=== PATIENT | male | born 1950 | race Caucasian/White ===

== ENCOUNTER 2017-01-25 10:19 | Inpatient (IN) | payer OTHER ==
[2017-01-25 10:43] VITALS: BMI 18.1
--- NOTE | 2017-01-25 12:34 | HP ---
COWS - Scale Resting Pulse: 0= [place] 80 or Below Sweatin=Flushed/Facial Moisture Restless Observation: 3= Extraneous Movement Pupil Size: 2= Moderately Dilated Bone or Joint Aches: 2= Severe Diffuse Aches Runny Nose/ Eye Tearin= Runny Nose/Eyes GI Upset > 30mins: 3= Vomiting/Diarrhea Tremor Observation: 2= Slight Tremor Visible Yawning Observation: 2= >3x During Session Anxiety or Irritability: 2=Irritable/Anxious Goose Flesh Skin: 0=Smooth Skin COWS Score: 20 Admission ROS BHS - HPI Chief Complaint: I NEED HELP TO STOP USING HEROIN Allergies/Adverse Reactions: Allergies Allergy/AdvReac Type Severity Reaction Status Date / Time Penicillins Allergy Verified 01/25/17 13:15 History of Present Illness: THIS 66 YEARS OLD MALE WITH HEROIN DEPENDENCE NEED DETOX,LAST TREATMENT IN 2007 [facility] SEIZURE LAST 2006 WEIGHT LOSS NICOTINE DEPENDENCE DEPRESSION.INSOMNIA HEPATITIS C TREATED LONGEST SOBRIETY 9 YEARS Exam Limitations: No Limitations - Ebola screening Have you traveled outside of the country in the last 21 days: No Have you had contact with anyone from an Ebola affected area: No Have you been sick,other than usual withdrawal symptoms: No Do you have a fever: No - Review of Systems Constitutional: Chills, Diaphoresis, Loss of Appetite, Malaise, Night Sweats, Changes in sleep, Weakness, Unintentional Wgt. Loss EENT: reports: Tearing, Nose Congestion Respiratory: reports: No Symptoms reported Cardiac: reports: Palpitations GI: reports: Diarrhea, Nausea, Vomiting, Abdominal cramping : reports: No Symptoms Reported Musculoskeletal: reports: Back Pain, Joint Pain, Muscle Pain, Joint Stiffness Integumentary: reports: Dryness Neuro: reports: Headache, Tremors Endocrine: reports: No Symptoms Reported Hematology: reports: No Symptoms Reported Psychiatric: reports: Anxious, Depressed (INSOMNIA) Patient History - Patient Medical History Hx Anemia: No Hx Asthma: No Hx Chronic Obstructive Pulmonary Disease (COPD): No Hx Cancer: No Hx Cardiac Disorders: No Hx Congestive Heart Failure: No Hx Hypertension: No Hx Hypercholesterolemia: No Hx Pacemaker: No HX Cerebrovascular Accident: No Hx Seizures: No Hx Dementia: No Hx Diabetes: No Hx Gastrointestinal Disorders: No Hx Liver Disease: No Hx Genitourinary Disorders: No Hx Sexually Transmitted Disorders: No Hx Renal Disease (ESRD): No Hx Thyroid Disease: No Hx Human Immunodeficiency Virus (HIV): (NEVER BEEN TESTED) Hx Hepatitis C: Yes (TREATED IN 2007) Hx Depression: Yes Hx Suicide Attempt: No Hx Bipolar Disorder: No Hx Schizophrenia: No Other Medical History: NO SUICIDAL,NO HOMICIDAL - Patient Surgical History Past Surgical History: No Hx Neurologic Surgery: No Hx Cataract Extraction: No Hx Cardiac Surgery: No Hx Lung Surgery: No Hx Breast Surgery: No Hx Breast Biopsy: No Hx Abdominal Surgery: No Hx Appendectomy: No Hx Cholecystectomy: No Hx Genitourinary Surgery: No Hx Section: No Hx Orthopedic Surgery: Yes ([facility] AT AGE OF 31 YEARS) Anesthesia Reaction: No - PPD History Previous Implant?: Yes Documented Results: Negative w/o proof Implanted On Prior R Admission?: No PPD to be Administered?: Yes - Smoking Cessation Smoking history: Current every day smoker Have you smoked in the past 12 months: Yes Aproximately how many cigarettes per day: 10 Hx Chewing Tobacco Use: No Initiated information on smoking cessation: Yes 'Breaking Loose' booklet given: 01/25/17 - Substance & Tx. History Hx Alcohol Use: No Hx Substance Use: Yes Substance Use Type: Heroin Hx Substance Use Treatment: Yes ([facility] 04/2010) - Substances Abused Heroin Route: Injection Frequency: Daily Amount used: 10 BAGS Age of first use: 12 Date of Last Use: 01/25/17 Family Disease History - Family Disease History Family History: Denies Admission Physical Exam BHS - Vital Signs Vital Signs: Vital Signs - 24 hr 01/25/17 10:41 Temperature 96.8 F L Pulse Rate 74 Respiratory 19 Rate Blood Pressure 123/77 - Physical General Appearance: Yes: Moderate Distress, Tremorous, Irritable, Sweating, Anxious, Other HEENTM: Yes: Normal ENT Inspection, Normocephalic, Normal Voice, OG, Pharynx Normal Respiratory: Yes: Lungs Clear, Normal Breath Sounds, No Respiratory Distress Neck: Yes: Within Normal Limits, Supple, Trachea in good position Breast: Yes: Within Normal Limits Cardiology: Yes: Within Normal Limits, Regular Rhythm, Regular Rate, S1, S2 Abdominal: Yes: Within Normal Limits, Normal Bowel Sounds, Non Tender, Flat, Soft Genitourinary: Yes: Within Normal Limits Back: Yes: Within Normal Limits Musculoskeletal: Yes: full range of Motion, Back pain, Joint Stiffness, Muscle Pain Extremities: Yes: Within Normal Limits, Normal Range of Motion, Tremors, Inflammation Neurological: Yes: Fully Oriented, Alert, Motor Strength 5/5 Integumentary: Yes: Dry - Diagnostic (1) Opioid dependence with withdrawal Current Visit: Yes Status: Acute (2) Weight loss Current Visit: Yes Status: Chronic (3) Insomnia secondary to depression with anxiety Current Visit: Yes Status: Acute (4) Hepatitis C Current Visit: Yes Status: Resolved (5) Nicotine dependence Current Visit: Yes Status: Acute (6) Seizure Current Visit: Yes Status: Acute Cleared for Admission [facility] - Detox or Rehab [facility] Level of Care: Medically Managed Detox Regimen/Protocol: Methadone [facility] Breath Alcohol Content Breath Alcohol Content: 0 Urine Drug Screen - Results Drug Screen Negative: No Urine Drug Screen Results: OPI-Opiates
[2017-01-25] MEDS ORDERED: guaiFENesin/D-METHORPHAN HB 10 ML UNIT-DOSE CUPS PO PRN (13:32)
[2017-01-25] MEDS ORDERED: MAG HYDROX/AL HYDROX/SIMETH 30 ML UNIT-DOSE CUP PO PRN (13:32)
[2017-01-25] MEDS ORDERED: METHADONE HCL 10 MG TABLET (FOR DETOX USE ONLY) PO ONE ×2 (13:32→23:00)
[2017-01-25] MEDS ORDERED: MAGNESIUM HYDROX 2400MG/30ML ORAL SUSPENSION 30 ML CUP PO PRN (13:32)
[2017-01-25] MEDS ORDERED: MENTHOL/PHENOL 1 EACH UD MM PRN (13:32)
[2017-01-25] MEDS ORDERED: IBUPROFEN 400 MG TABLET (FP) PO PRN (13:32)
[2017-01-25] MEDS ORDERED: diphenhydrAMINE HCL 50 MG CAPSULE PO PRN (13:32)
[2017-01-25] MEDS ORDERED: P-EPHED 60MG/TRIPROLIDI 2.5MG TABLET PO PRN (13:32)
[2017-01-25] MEDS ORDERED: hydrOXYzine PAMOATE 25 MG CAPSULE (FP) PO PRN (13:32)
[2017-01-25] MEDS ORDERED: ACETAMINOPHEN 325 MG TABLET (FP) PO PRN (13:32)
[2017-01-25] MEDS ORDERED: MAGNESIUM CITRATE 300 ML BOTTLE PO PRN (13:32)
[2017-01-25] MEDS ORDERED: LOPERAMIDE HCL 2 MG CAPSULE PO PRN (13:32)
[2017-01-25] MEDS: diazePAM 5 MG TABLET PO PRN ×2 (14:55→22:16)
[2017-01-25 21:21] LABS: URINE APPEARANCE SLCLOUDY; URINE BILIRUBIN NEGATIVE (NEGATIVE); URINE BLOOD NEGATIVE (NEGATIVE); URINE COLOR AMBER; URINE GLUCOSE (UA) NEGATIVE (NEGATIVE); URINE KETONE TRACE (NEGATIVE); URINE LEUK ESTERASE NEGATIVE (NEGATIVE); URINE NITRITE NEGATIVE (NEGATIVE); URINE PROTEIN 3+ (NEGATIVE); URINE UROBILINOGEN NEGATIVE mg/dL (0.2-1.0)
[2017-01-25 21:49] LABS: CALCIUM OXALATE CRYSTALS RARE /hpf (NONE SEEN); URINE BACTERIA RARE /hpf (NONE SEEN); URINE MUCUS RARE; URINE RBC 7 /hpf (0-3); URINE WBC 7 /hpf (3-5)
[2017-01-25] MEDS: THIAMINE HCL 100 MG TABLET (FP) PO SCH (22:16)
[2017-01-26] MEDS: diazePAM 5 MG TABLET PO PRN ×3 (05:53→22:18)
[2017-01-26] MEDS ORDERED: METHADONE HCL 10 MG TABLET (FOR DETOX USE ONLY) PO ONE (10:00)
[2017-01-26] MEDS: PRENATAL VITAMINS W/ FOLIC ACID TABLET (FP) PO SCH (10:27)
[2017-01-26 10:33] LABS: ALBUMIN 2.6 g/dl (3.4-5.0); ANION GAP 4 (8-16); CALCIUM 8.5 mg/dL (8.5-10.1); CO2 30 mmol/L (21-32); GLUCOSE,RANDOM 87 mg/dL (74-106)
[2017-01-26 10:36] LABS: ALK PHOS 74 U/L (45-117); BILIRUBIN,TOTAL 0.5 mg/dL (0.2-1.0); CREATININE 1.3 mg/dL (0.7-1.3); SGPT/ALT 27 U/L (12-78); TOT PROT 5.3 g/dl (6.4-8.2)
[2017-01-26 10:40] LABS: SGOT/AST 30 U/L (15-37)
--- NOTE | 2017-01-26 11:16 | CONSULT ---
[facility] Psychiatric Consult - Data Date of interview: 01/26/17 Admission source: [facility] Identifying data: First admission to [facility] for this 66 y/o male seeking detox treatment on for heroin dependence.Patient is ,a father of one,homeless,unemployed and supported on Public Assistance. Substance Abuse History: Discussed with patient in this interview.Mr Gomez confirms this report. Smoking Cessation. Smoking history: Current every day smoker. Have you smoked in the past 12 months: Yes. Aproximately how many cigarettes per day: 10. Hx Chewing Tobacco Use: No. Initiated information on smoking cessation: Yes. 'Breaking Loose' booklet given: 01/25/17. - Substance & Tx. History. Hx Alcohol Use: No. Hx Substance Use: Yes. Substance Use Type : Heroin. Hx Substance Use Treatment: Yes ([facility] 04/2010). - Substances Abused. Heroin. Route: Injection. Frequency: Daily. Amount used: 10 BAGS. Age of first use: 12. Date of Last Use: 01/25/17 Medical History: Past history of hepatitis C (treated in 2007). Psychiatric History: Patient indicates that he is known to [facility] (psychiatric hospitalization versus drug treatment program : unclear).Mr Gomez endorses MDD and PTSD.He informs that he used to be on psychotropic medications (names not recalled)." I used to see a psychiatrist at the 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 Physical/Sexual Abuse/Trauma History: No reported history of sexual abuse.Traumatized by his half-way experiences. Additional Comment: Urine Drug Screen Results: OPI-Opiates.Noted. Mental Status Exam - Mental Status Exam Alert and Oriented to: Time, Place, Person Cognitive Function: Grossly Intact Patient Appearance: Unkempt (frail habitus,thin), Disheveled Mood: Withdrawn, Hopeful Affect: Appropriate, Normal Range Patient Behavior: Fatigued, Cooperative Speech Pattern: Clear, Appropriate Voice Loudness: Normal Thought Process: Goal Oriented Thought Disorder: Not Present Hallucinations: Denies Suicidal Ideation: Denies Homicidal Ideation: Denies Insight/Judgement: Poor Sleep: Well Appetite: Poor, Weight loss Muscle strength/Tone: Normal Gait/Station: Normal Psychiatric Findings - Problem List ([place] 1, 2,3) (1) Opioid dependence with withdrawal Current Visit: Yes Status: Acute (2) Substance induced mood disorder Current Visit: Yes Status: Acute (3) MDD (major depressive disorder) Current Visit: Yes Status: Chronic Comment: History reported by patient.Non-compliant with OPD care. (4) Hepatitis C Current Visit: Yes Status: Resolved (5) Weight loss Current Visit: Yes Status: Chronic (6) Nicotine dependence Current Visit: Yes Status: Acute - Initial Treatment Plan Initial Treatment Plan: Psychoeducation.Detoxification.Pharmacy claims are reviewed : scripts for celexa 20 mg/day + seroquel 50 mg/hs (dated 11/14/16) at [facility] + mirtazapine 15 mg/hs dated 01/01/17).Will restart remeron 15 mg po hs.Side effects/benefits discussed with patient.Mr Gomez is in agreement with this careplan.Observation.
--- NOTE | 2017-01-26 11:27 | EKG ---
Test Reason : Blood Pressure : / mmHG Vent. Rate : 052 BPM Atrial Rate : 052 BPM P-R Int : 168 ms QRS Dur : 094 ms QT Int : 470 ms P-R-T Axes : 064 082 262 degrees QTc Int : 437 ms SINUS BRADYCARDIA WITH OCCASIONAL PREMATURE VENTRICULAR COMPLEXES ABNORMAL ECG NO PREVIOUS ECGS AVAILABLE Confirmed by GERALDO VALLE MD ([id number]) on 01/26/2017 11:27:20 AM Referred By: Confirmed By:GERALDO VALLE MD
--- NOTE | 2017-01-26 16:07 | PN ---
S COWS - Scale Resting Pulse: 0= [place] 80 or Below Sweatin=Flushed/Facial Moisture Restless Observation: 1= Difficult to Sit Still Pupil Size: 0= Normal to Room Light Bone or Joint Aches: 2= Severe Diffuse Aches Runny Nose/ Eye Tearin= Runny Nose/Eyes GI Upset > 30mins: 2= Nausea/Diarrhea Tremor Observation of Outstretched Hands: 2= Slight Tremor Visible Yawning Observation: 1= 1-2x During Session Anxiety or Irritability: 2=Irritable/Anxious Goose Flesh Skin: 0=Smooth Skin COWS Score: 14 S Progress Note (SOAP) Subjective: Anxiety,tremors,sweating,interrupted sleep,restless,body aches. Objective: 01/26/17 16:01 Vital Signs - 8 hr 01/26/17 01/26/17 09:05 13:28 Temperature 97.1 F L 97.0 F L Pulse Rate 72 78 Respiratory 18 16 Rate Blood Pressure 121/55 121/77 Laboratory Tests 01/25/17 01/26/17 01/26/17 15:25 07:50 07:50 WBC Cancelled Corrected WBC (auto) Cancelled RBC Cancelled Hgb Cancelled Hct Cancelled MCV Cancelled MCH Cancelled MCHC Cancelled RDW Cancelled Plt Count Cancelled MPV Cancelled Differential Comment Cancelled Platelet Estimate Cancelled Platelet Comment Cancelled RBC Morphology Cancelled Sodium 141 Potassium 4.3 Chloride 107 Carbon Dioxide 30 Anion Gap 4 L BUN 24 H Creatinine 1.3 Creat Clearance w eGFR 55.23 Random Glucose 87 Calcium 8.5 Total Bilirubin 0.5 AST 30 ALT 27 Alkaline Phosphatase 74 Total Protein 5.3 L Albumin 2.6 L Urine Color Mariann Urine Appearance Slcloudy Urine pH 5.0 Ur Specific [place] >= 1.030 H Urine Protein 3+ H Urine Glucose (UA) Negative Urine Ketones Trace H Urine Blood Negative Urine Nitrite Negative Urine Bilirubin Negative Urine Urobilinogen Negative Urine RBC 7 Urine WBC 7 Ur Epithelial Cells Rare Calcium Oxalate Crystal Rare Urine Bacteria Rare Urine Mucus Rare RPR Titer 01/26/17 07:50 WBC Corrected WBC (auto) RBC Hgb Hct MCV MCH MCHC RDW Plt Count MPV Differential Comment Platelet Estimate Platelet Comment RBC Morphology Sodium Potassium Chloride Carbon Dioxide Anion Gap BUN Creatinine Creat Clearance w eGFR Random Glucose Calcium Total Bilirubin AST ALT Alkaline Phosphatase Total Protein Albumin Urine Color Urine Appearance Urine pH Ur Specific [place] Urine Protein Urine Glucose (UA) Urine Ketones Urine Blood Urine Nitrite Urine Bilirubin Urine Urobilinogen Urine RBC Urine WBC Ur Epithelial Cells Calcium Oxalate Crystal Urine Bacteria Urine Mucus RPR Titer Nonreactive labs noted Assessment: 01/26/17 16:07 Withdrawal sx. Plan: Continue detox
[2017-01-26] MEDS: THIAMINE HCL 100 MG TABLET (FP) PO SCH (22:18)
[2017-01-26] MEDS: MIRTAZAPINE 15 MG TABLET (FP) PO SCH (22:18)
[2017-01-27] MEDS ORDERED: METHADONE HCL 5 MG TABLET (FOR DETOX USE ONLY) PO ONE (10:00)
[2017-01-27] MEDS: PRENATAL VITAMINS W/ FOLIC ACID TABLET (FP) PO SCH (10:03)
--- NOTE | 2017-01-27 12:36 | PN ---
S COWS - Scale Resting Pulse: 1= [place] 81-100 Sweatin= Chills/Flushing Restless Observation: 1= Difficult to Sit Still Pupil Size: 0= Normal to Room Light Bone or Joint Aches: 2= Severe Diffuse Aches Runny Nose/ Eye Tearin= Nasal Congestion GI Upset > 30mins: 1= Stomach Cramp Tremor Observation of Outstretched Hands: 0= None Yawning Observation: 2= >3x During Session Anxiety or Irritability: 2=Irritable/Anxious Goose Flesh Skin: 3=Piloe[place] COWS Score: 14 S Progress Note (SOAP) Subjective: Sweating, H/A, Body Aches. Objective: PT. A & O X 1 (DISORIENTED ABOUT DAY / DATE AND ABOUT CURRENT LOCATION). PT. OBSERVED AMBULATIN [place] UNIT. NO ACUTE DISTRESS. 01/27/17 12:32 Vital Signs Temperature 97.1 F L 01/27/17 09:23 Pulse Rate 83 01/27/17 09:23 Respiratory Rate 16 01/27/17 09:23 Blood Pressure 103/75 01/27/17 09:23 O2 Sat by Pulse Oximetry (%) Laboratory Tests 01/25/17 01/26/17 01/26/17 15:25 07:50 07:50 WBC Cancelled Corrected WBC (auto) Cancelled RBC Cancelled Hgb Cancelled Hct Cancelled MCV Cancelled MCH Cancelled MCHC Cancelled RDW Cancelled Plt Count Cancelled MPV Cancelled Differential Comment Cancelled Platelet Estimate Cancelled Platelet Comment Cancelled RBC Morphology Cancelled Sodium 141 Potassium 4.3 Chloride 107 Carbon Dioxide 30 Anion Gap 4 L BUN 24 H Creatinine 1.3 Creat Clearance w eGFR 55.23 Random Glucose 87 Calcium 8.5 Total Bilirubin 0.5 AST 30 ALT 27 Alkaline Phosphatase 74 Total Protein 5.3 L Albumin 2.6 L Urine Color Mariann Urine Appearance Slcloudy Urine pH 5.0 Ur Specific [place] >= 1.030 H Urine Protein 3+ H Urine Glucose (UA) Negative Urine Ketones Trace H Urine Blood Negative Urine Nitrite Negative Urine Bilirubin Negative Urine Urobilinogen Negative Urine RBC 7 Urine WBC 7 Ur Epithelial Cells Rare Calcium Oxalate Crystal Rare Urine Bacteria Rare Urine Mucus Rare RPR Titer 01/26/17 07:50 WBC Corrected WBC (auto) RBC Hgb Hct MCV MCH MCHC RDW Plt Count MPV Differential Comment Platelet Estimate Platelet Comment RBC Morphology Sodium Potassium Chloride Carbon Dioxide Anion Gap BUN Creatinine Creat Clearance w eGFR Random Glucose Calcium Total Bilirubin AST ALT Alkaline Phosphatase Total Protein Albumin Urine Color Urine Appearance Urine pH Ur Specific [place] Urine Protein Urine Glucose (UA) Urine Ketones Urine Blood Urine Nitrite Urine Bilirubin Urine Urobilinogen Urine RBC Urine WBC Ur Epithelial Cells Calcium Oxalate Crystal Urine Bacteria Urine Mucus RPR Titer Nonreactive LABS NOTED. Assessment: 01/27/17 12:33 WITHDRAWAL SYMPTOMS. Plan: CONTINUE DETOX. CBC (ADMISSION CBC CANCELLED). REPEAT CMP FOR ABNORMAL RENAL LAB VALUES. D/C MAGNESIUM-CONTAINING MEDS. REPEAT UA FOR ADMISSION ABNORMALITIES. INCREASE DAILY PO FLUID INTAKE.
[2017-01-27] MEDS ORDERED: BACITRACIN 15 GM TUBE TOPICAL OINTMENT TP ONE (17:15)
[2017-01-27] MEDS ORDERED: BACITRACIN 0.9 GM PACKET TP ONE (17:15)
[2017-01-27 19:44] LABS: URINE APPEARANCE CLEAR; URINE BILIRUBIN NEGATIVE (NEGATIVE); URINE BLOOD NEGATIVE (NEGATIVE); URINE COLOR LTYELLOW; URINE GLUCOSE (UA) NEGATIVE (NEGATIVE); URINE KETONE NEGATIVE (NEGATIVE); URINE LEUK ESTERASE NEGATIVE (NEGATIVE); URINE NITRITE NEGATIVE (NEGATIVE); URINE PROTEIN NEGATIVE (NEGATIVE); URINE UROBILINOGEN NEGATIVE mg/dL (0.2-1.0)
[2017-01-27] MEDS: BACITRACIN 0.9 GM PACKET TP SCH (22:14)
[2017-01-27] MEDS: THIAMINE HCL 100 MG TABLET (FP) PO SCH (22:14)
[2017-01-27] MEDS: MIRTAZAPINE 15 MG TABLET (FP) PO SCH (22:15)
[2017-01-28] MEDS: diazePAM 5 MG TABLET PO PRN (06:10)
--- NOTE | 2017-01-28 09:52 | EKG ---
Test Reason : Blood Pressure : / mmHG Vent. Rate : 059 BPM Atrial Rate : 059 BPM P-R Int : 160 ms QRS Dur : 096 ms QT Int : 446 ms P-R-T Axes : 069 077 257 degrees QTc Int : 441 ms SINUS BRADYCARDIA LEFT VENTRICULAR HYPERTROPHY WITH REPOLARIZATION ABNORMALITY ABNORMAL ECG WHEN COMPARED WITH ECG OF 25-JAN-2017 14:41, PREMATURE VENTRICULAR COMPLEXES ARE NO LONGER PRESENT Confirmed by LIANNE ELLIS, ALYSSA ([id number]) on 01/28/2017 9:52:22 AM Referred By: Confirmed By:ALYSSA ABDALLA MD
[2017-01-28 09:57] LABS: BASOPHIL 0.7 % (0-2.0); EOSINOPHIL 6.5 % (0-4.5); MCH 31.6 pg (25.7-33.7); MEAN CELL VOLUME 95.8 fl (80-96); MEAN PLT VOLUME 9.5 fl (7.5-11.1); NEUTROPHILS 57.4 % (42.8-82.8); PLATELET COUNT 156 K/MM3 (134-434); RDW 13.9 % (11.9-15.9); WHITE BLOOD COUNT 6.1 K/mm3 (4.0-10.0)
[2017-01-28] MEDS ORDERED: METHADONE HCL 5 MG TABLET (FOR DETOX USE ONLY) PO ONE (10:00)
[2017-01-28] MEDS: BACITRACIN 0.9 GM PACKET TP SCH ×2 (10:19→21:05)
[2017-01-28] MEDS: PRENATAL VITAMINS W/ FOLIC ACID TABLET (FP) PO SCH (10:19)
[2017-01-28 10:59] LABS: ANION GAP 8 (8-16); CALCIUM 8.5 mg/dL (8.5-10.1); CO2 27 mmol/L (21-32); CREATININE 1.2 mg/dL (0.7-1.3); GLUCOSE,RANDOM 102 mg/dL (74-106)
--- NOTE | 2017-01-28 12:25 | PN ---
S Progress Note (SOAP) Subjective: Tremors, Body Aches, Anxious. Objective: PT. A & O X 1 (DISORIENTED ABOUT DAY/DATE ABOUT CURRENT LOCATION). PT. OBSERVED AMBULATING ON UNIT. NO ACUTE DISTRESS. PT. DENIES CHEST PAIN. 01/28/17 12:22 Vital Signs Temperature 96.3 F L 01/28/17 09:22 Pulse Rate 103 H 01/28/17 09:22 Respiratory Rate 18 01/28/17 09:22 Blood Pressure 128/86 01/28/17 09:22 O2 Sat by Pulse Oximetry (%) Laboratory Tests 01/25/17 01/26/17 01/26/17 15:25 07:50 07:50 WBC Cancelled Corrected WBC (auto) Cancelled RBC Cancelled Hgb Cancelled Hct Cancelled MCV Cancelled MCH Cancelled MCHC Cancelled RDW Cancelled Plt Count Cancelled MPV Cancelled Neutrophils % Lymphocytes % Monocytes % Eosinophils % Basophils % Differential Comment Cancelled Platelet Estimate Cancelled Platelet Comment Cancelled RBC Morphology Cancelled Sodium 141 Potassium 4.3 Chloride 107 Carbon Dioxide 30 Anion Gap 4 L BUN 24 H Creatinine 1.3 Creat Clearance w eGFR 55.23 Random Glucose 87 Calcium 8.5 Total Bilirubin 0.5 AST 30 ALT 27 Alkaline Phosphatase 74 Total Protein 5.3 L Albumin 2.6 L Urine Color [place] Urine Appearance Slcloudy Urine pH 5.0 Ur Specific [place] >= 1.030 H Urine Protein 3+ H Urine Glucose (UA) Negative Urine Ketones Trace H Urine Blood Negative Urine Nitrite Negative Urine Bilirubin Negative Urine Urobilinogen Negative Urine RBC 7 Urine WBC 7 Ur Epithelial Cells Rare Calcium Oxalate Crystal Rare Urine Bacteria Rare Urine Mucus Rare RPR Titer 01/26/17 01/27/17 01/28/17 07:50 19:29 07:00 WBC 6.1 Corrected WBC (auto) RBC 3.88 L Hgb 12.3 Hct 37.2 MCV 95.8 MCH 31.6 MCHC 33.0 RDW 13.9 Plt Count 156 MPV 9.5 Neutrophils % 57.4 Lymphocytes % 24.4 Monocytes % 11.0 H Eosinophils % 6.5 H Basophils % 0.7 Differential Comment Platelet Estimate Platelet Comment RBC Morphology Sodium Potassium Chloride Carbon Dioxide Anion Gap BUN Creatinine Creat Clearance w eGFR Random Glucose Calcium Total Bilirubin AST ALT Alkaline Phosphatase Total Protein Albumin Urine Color Ltyellow Urine Appearance Clear Urine pH 5.0 Ur Specific [place] <= 1.005 Urine Protein Negative Urine Glucose (UA) Negative Urine Ketones Negative Urine Blood Negative Urine Nitrite Negative Urine Bilirubin Negative Urine Urobilinogen Negative Urine RBC Urine WBC Ur Epithelial Cells Calcium Oxalate Crystal Urine Bacteria Urine Mucus RPR Titer Nonreactive 01/28/17 07:00 WBC Corrected WBC (auto) RBC Hgb Hct MCV MCH MCHC RDW Plt Count MPV Neutrophils % Lymphocytes % Monocytes % Eosinophils % Basophils % Differential Comment Platelet Estimate Platelet Comment RBC Morphology Sodium 139 Potassium 3.9 Chloride 104 Carbon Dioxide 27 Anion Gap 8 BUN 24 H Creatinine 1.2 Creat Clearance w eGFR Random Glucose 102 Calcium 8.5 Total Bilirubin AST ALT Alkaline Phosphatase Total Protein Albumin Urine Color Urine Appearance Urine pH Ur Specific [place] Urine Protein Urine Glucose (UA) Urine Ketones Urine Blood Urine Nitrite Urine Bilirubin Urine Urobilinogen Urine RBC Urine WBC Ur Epithelial Cells Calcium Oxalate Crystal Urine Bacteria Urine Mucus RPR Titer LABS NOTED. Assessment: 01/28/17 12:24 WITHDRAWAL SYMPTOMS. Plan: CONTINUE DETOX. AMMONIA LEVEL, PSYCH CONSULTATION ORDERED FOR CONFUSION / DISORIENTATION.
--- NOTE | 2017-01-28 14:34 | PN ---
BHS Progress Note Note: Patient's Ammonia Level: 35.28. Lactulose, 20 GM PO TID ordered. Acetaminophen D /C'd.
[2017-01-28] MEDS: LACTULOSE 20 GM/30 ML UDC (FOR ORAL USE ONLY) PO SCH ×2 (14:40→21:05)
--- NOTE | 2017-01-28 14:54 | PN ---
Psychiatric Progress Note Vital Signs: Vital Signs Period Temp Pulse Resp BP Sys/Ferrer Pulse Ox Last 24 Hr 96.3 F-99.4 F 66-103 16-18 122-152/63-86 Date of Session: 01/28/17 Chief Complaint:: " I am at [facility]." Patient is cognitively impaired. HPI: Day 3 of detox treatment for heroin dependence.Psychiatric re-evaluation is sought to address sudden alteration of mental status.Mr Gomez is observed behaving erratically as evidenced by disrobing,throwing his pajamas in the garbage can,wandering on the unit and rambling. ROS: Patient is disoriented to time (unaware of day of week/believes that this is end of February 2017) and place (believes that he is still at [facility]).Wanders around.Incoherent and irrelevant speech.Ambulatory.Steady but slow gait.Cognitively impaired. Current Medications: Active Medications Generic Name Dose Route Start Last Admin Trade Name Freq PRN Reason Stop Dose Admin Bacitracin 0.9 gm 01/27/17 22:00 01/28/17 10:19 Bacitracin - TP 0.9 gm BID MARTIN Administration Diphenhydramine HCl 50 mg 01/25/17 13:32 01/27/17 22:15 Benadryl - PO 50 mg HSMR1 PRN Administration INSOMNIA Eucalyptus/Menthol/Phenol/Sorbitol 1 each 01/25/17 13:32 Cepastat Lozenge - MM Q4H PRN SORE THROAT Guaifenesin 10 ml 01/25/17 13:32 Robitussin Dm - PO Q6H PRN COUGH Hydroxyzine Pamoate 25 mg 01/25/17 13:32 Vistaril - PO Q4H PRN AGITATION Ibuprofen 400 mg 01/25/17 13:32 Motrin - PO Q6H PRN SEVERE PAIN Lactulose 20 gm 01/28/17 14:30 01/28/17 14:40 Cephulac (Oral Use) PO 20 gm TID MARTIN Administration Loperamide HCl 4 mg 01/25/17 13:32 Imodium - PO Q6H PRN DIARRHEA Methadone HCl 10 mg 01/29/17 10:00 Dolophine - PO 01/29/17 10:01 ONCE ONE Methadone HCl 5 mg 01/30/17 06:00 Dolophine - PO 01/30/17 06:01 ONCE@0600 ONE Multivit/Folic Acid/Iron 1 tab 01/26/17 10:00 01/28/17 10:19 Vitamins (Sjr) - PO 1 tab DAILY MARTIN Administration Pseudoephedrine/Triprolidine 1 combo 01/25/17 13:32 Actifed - PO TID PRN NASAL CONGESTION Thiamine HCl 100 mg 01/25/17 22:00 01/27/17 22:14 Vitamin B1 - PO 100 mg HS MARTIN Administration Medication(s) Change(s): Remeron is discontinued.Recommend a re-adjustment of detox protocol (methadone dosage). Current Side Effect: Yes (medications are suspected to be the cause of altered mental state.) Lab tests ordered: Yes (mild elevation of ammonia level.) Lab tests reviewed: Yes Provider note:: Patient is examined.Case discussed with [employer] Ivan Ro.Chart reviewed.Patient is placed on Constant Observation for safety. Total face to face time:: 45 Mental Status Exam - Mental Status Exam Alert and Oriented to: Person Cognitive Function: Impaired Patient Appearance: Well Groomed, Bizarre Mood: Euthymic Affect: Blunted Patient Behavior: Wandering (odd demeanor,purposeless actions - rearranging objects + grabbing items on interviewer's desk - and moving around in an aimless fashion) Speech Pattern: Inappropriate, Rambling (at times), Perseverating (incoherent, irrelevant,disorganized) Voice Loudness: Normal Thought Process: Disorganized, Disoriented Thought Disorder: Bizarre Hallucinations: Denies Suicidal Ideation: Denies Homicidal Ideation: Denies Insight/Judgement: Poor, Impaired Sleep: Poorly Appetite: Fair Gait/Station: Other (slow gait) Psychiatric Treatment Plan - Problem List (1) Altered mental status Current Visit: Yes Qualifiers: Altered mental status type: delirium Qualified Code(s): R41.0 - Disorientation, unspecified (2) Opioid dependence with withdrawal Current Visit: Yes (3) Substance induced mood disorder Current Visit: Yes (4) MDD (major depressive disorder) Current Visit: Yes Comment: History reported by patient.Non-compliant with OPD care. (5) Hepatitis C Current Visit: Yes (6) Weight loss Current Visit: Yes (7) Nicotine dependence Current Visit: Yes
[2017-01-28] MEDS: THIAMINE HCL 100 MG TABLET (FP) PO SCH (21:05)
[2017-01-29] MEDS: LACTULOSE 20 GM/30 ML UDC (FOR ORAL USE ONLY) PO SCH ×3 (05:33→22:58)
[2017-01-29] MEDS ORDERED: METHADONE HCL 10 MG TABLET (FOR DETOX USE ONLY) PO ONE (10:00)
[2017-01-29] MEDS: BACITRACIN 0.9 GM PACKET TP SCH ×2 (10:12→22:58)
[2017-01-29] MEDS: PRENATAL VITAMINS W/ FOLIC ACID TABLET (FP) PO SCH (10:12)
[2017-01-29] MEDS: LOSARTAN POTASSIUM 50 MG TABLET (FP) PO SCH ×2 (10:13→22:58)
[2017-01-29] MEDS: CARVEDILOL 25 MG TABLET (FP) PO SCH ×2 (10:13→22:58)
--- NOTE | 2017-01-29 11:20 | PN ---
S Progress Note (SOAP) Subjective: SAW PT SITTING ON HIS BED, NO RESTLESSNESS OR AGITATIONS. ALERT ORIENTED TO SELF AND PLACE BUT NOT DAY. COHERENT IN CONVERSATION ASKING ABOUT HIS AFTERCARE. TO BE RE-EVALUATED BY PSYCH TODAY. Objective: 01/29/17 12:14 Vital Signs Temperature 99.3 F 01/29/17 09:16 Pulse Rate 79 01/29/17 09:16 Respiratory Rate 16 01/29/17 09:16 Blood Pressure 122/70 01/29/17 09:16 O2 Sat by Pulse Oximetry (%) Laboratory Last Values WBC 6.1 K/mm3 (4.0-10.0) 01/28/17 07:00 Corrected WBC (auto) Cancelled 01/26/17 07:50 RBC 3.88 M/mm3 (4.00-5.60) L 01/28/17 07:00 Hgb 12.3 GM/dL (11.7-16.9) 01/28/17 07:00 Hct 37.2 % (35.4-49) 01/28/17 07:00 MCV 95.8 fl (80-96) 01/28/17 07:00 MCH 31.6 pg (25.7-33.7) 01/28/17 07:00 MCHC 33.0 g/dl (32.0-35.9) 01/28/17 07:00 RDW 13.9 % (11.9-15.9) 01/28/17 07:00 Plt Count 156 K/MM3 (134-434) 01/28/17 07:00 MPV 9.5 fl (7.5-11.1) 01/28/17 07:00 Neutrophils % 57.4 % (42.8-82.8) 01/28/17 07:00 Lymphocytes % 24.4 % (8-40) 01/28/17 07:00 Monocytes % 11.0 % (3.8-10.2) H 01/28/17 07:00 Eosinophils % 6.5 % (0-4.5) H 01/28/17 07:00 Basophils % 0.7 % (0-2.0) 01/28/17 07:00 Differential Comment Cancelled 01/26/17 07:50 Platelet Estimate Cancelled 01/26/17 07:50 Platelet Comment Cancelled 01/26/17 07:50 Platelet Comment Cancelled 01/26/17 07:50 RBC Morphology Cancelled 01/26/17 07:50 Sodium 139 mmol/L (136-145) 01/28/17 07:00 Potassium 3.9 mmol/L (3.5-5.1) 01/28/17 07:00 Chloride 104 mmol/L (98-107) 01/28/17 07:00 Carbon Dioxide 27 mmol/L (21-32) 01/28/17 07:00 Anion Gap 8 (8-16) 01/28/17 07:00 BUN 24 mg/dL (7-18) H 01/28/17 07:00 Creatinine 1.2 mg/dL (0.7-1.3) 01/28/17 07:00 Creat Clearance w eGFR 55.23 (>60) 01/26/17 07:50 Random Glucose 102 mg/dL (74-106) 01/28/17 07:00 Calcium 8.5 mg/dL (8.5-10.1) 01/28/17 07:00 Total Bilirubin 0.5 mg/dL (0.2-1.0) 01/26/17 07:50 AST 30 U/L (15-37) 01/26/17 07:50 ALT 27 U/L (12-78) 01/26/17 07:50 Alkaline Phosphatase 74 U/L (45-117) 01/26/17 07:50 Ammonia 35.28 umol/L (11-32) H 01/28/17 12:20 Total Protein 5.3 g/dl (6.4-8.2) L 01/26/17 07:50 Albumin 2.6 g/dl (3.4-5.0) L 01/26/17 07:50 Urine Color Ltyellow 01/27/17 19:29 Urine Appearance Clear 01/27/17 19:29 Urine pH 5.0 (5.0-8.0) 01/27/17 19:29 Ur Specific [place] <= 1.005 (1.005-1.025) 01/27/17 19:29 Urine Protein Negative (NEGATIVE) 01/27/17 19:29 Urine Glucose (UA) Negative (NEGATIVE) 01/27/17 19:29 Urine Ketones Negative (NEGATIVE) 01/27/17 19:29 Urine Blood Negative (NEGATIVE) 01/27/17 19:29 Urine Nitrite Negative (NEGATIVE) 01/27/17 19:29 Urine Bilirubin Negative (NEGATIVE) 01/27/17 19:29 Urine Urobilinogen Negative mg/dL (0.2-1.0) 01/27/17 19:29 Urine RBC 7 /hpf (0-3) 01/25/17 15:25 Urine WBC 7 /hpf (3-5) 01/25/17 15:25 Ur Epithelial Cells Rare /hpf (FEW) 01/25/17 15:25 Calcium Oxalate Crystal Rare /hpf (NONE SEEN) 01/25/17 15:25 Urine Bacteria Rare /hpf (NONE SEEN) 01/25/17 15:25 Urine Mucus Rare 01/25/17 15:25 RPR Titer Nonreactive (NONREACTIVE) 01/26/17 07:50 Assessment: 01/29/17 12:16 WITHDRAWAL SX Plan: CONTINUE DETOX PT RE-EVALUATED BY PSYCH MD TREVINO D/C'D 1:1 PROTOCOL.
--- NOTE | 2017-01-29 12:13 | PN ---
Psychiatric Progress Note Vital Signs: Vital Signs Period Temp Pulse Resp BP Sys/Ferrer Pulse Ox Last 24 Hr 96.3 F-99.3 F 79-104 16-18 122-160/70-94 Date of Session: 01/29/17 Chief Complaint:: reevaluation for 1:1 observation due to altered mental status HPI: Patient has been evaluated at bedside, chart reviewed, patient is oriented to place, person and time, making good eye contact, redirectional and asking for food, ensure was ordered, patient reports low energy and motivation to take ensure.. Current Ammonia level is:35.2. Patient asking to restart his psychiatric medications as well Current Medications: Active Medications Generic Name Dose Route Start Last Admin Trade Name Freq PRN Reason Stop Dose Admin Bacitracin 0.9 gm 01/27/17 22:00 01/29/17 10:12 Bacitracin - TP 0.9 gm BID MARTIN Administration Carvedilol 25 mg 01/29/17 10:00 01/29/17 10:13 Coreg - PO 25 mg BID MARTIN Administration Diphenhydramine HCl 50 mg 01/25/17 13:32 01/27/17 22:15 Benadryl - PO 50 mg HSMR1 PRN Administration INSOMNIA Eucalyptus/Menthol/Phenol/Sorbitol 1 each 01/25/17 13:32 Cepastat Lozenge - MM Q4H PRN SORE THROAT Guaifenesin 10 ml 01/25/17 13:32 Robitussin Dm - PO Q6H PRN COUGH Hydroxyzine Pamoate 25 mg 01/25/17 13:32 Vistaril - PO Q4H PRN AGITATION Ibuprofen 400 mg 01/25/17 13:32 01/29/17 04:08 Motrin - PO 400 mg Q6H PRN Administration SEVERE PAIN Lactulose 20 gm 01/28/17 14:30 01/29/17 05:33 Cephulac (Oral Use) PO 20 gm TID MARTIN Administration Loperamide HCl 4 mg 01/25/17 13:32 Imodium - PO Q6H PRN DIARRHEA Losartan Potassium 50 mg 01/29/17 10:00 01/29/17 10:13 Cozaar - PO 50 mg BID MARTIN Administration Methadone HCl 5 mg 01/30/17 06:00 Dolophine - PO 01/30/17 06:01 ONCE@0600 ONE Multivit/Folic Acid/Iron 1 tab 01/26/17 10:00 01/29/17 10:12 Vitamins (Sjr) - PO 1 tab DAILY MARTIN Administration Pseudoephedrine/Triprolidine 1 combo 01/25/17 13:32 Actifed - PO TID PRN NASAL CONGESTION Thiamine HCl 100 mg 01/25/17 22:00 01/28/17 21:05 Vitamin B1 - PO 100 mg HS MARTIN Administration Medication(s) Change(s): Discontinue 1:1 observation. Start: Celexa 20mg poqd. Remeron 15mg po qhs. Seroquel 50mg po qhs Mental Status Exam - Mental Status Exam Alert and Oriented to: Time, Place, Person Cognitive Function: Fair Patient Appearance: Unkempt Mood: Anxious Affect: Mood Congruent Patient Behavior: Cooperative Speech Pattern: Appropriate Voice Loudness: Mildly Soft/Quiet Thought Process: Circumstantial, Goal Oriented Thought Disorder: Being Controlled Hallucinations: Denies Suicidal Ideation: Denies Homicidal Ideation: Denies Insight/Judgement: Fair Sleep: Difficulty falling asleep Appetite: Weight loss Muscle strength/Tone: Mild Hypotonicity Gait/Station: Shuffling Additional Comments: Start Celexa 20mg poqd. Remeron 15mg po qhs. Seroquel 50mg po qhs Psychiatric Treatment Plan - Problem List (1) Nicotine dependence Current Visit: Yes (2) Opioid dependence with withdrawal Current Visit: Yes (3) Substance induced mood disorder Current Visit: Yes (4) MDD (major depressive disorder) Current Visit: Yes Comment: History reported by patient.Non-compliant with OPD care. (5) Weight loss Current Visit: Yes Initial treatment plan: Start Celexa 20mg poqd. Remeron 15mg po qhs. Seroquel 50mg po qhs
[2017-01-29] MEDS ORDERED: QUEtiapine FUMARATE 50 MG TABLET PO SCH (22:00)
[2017-01-29] MEDS ORDERED: MIRTAZAPINE 15 MG TABLET (FP) PO SCH (22:00)
[2017-01-29] MEDS: THIAMINE HCL 100 MG TABLET (FP) PO SCH (22:57)
[2017-01-30] MEDS ORDERED: METHADONE HCL 5 MG TABLET (FOR DETOX USE ONLY) PO ONE (06:00)
[2017-01-30] MEDS: LACTULOSE 20 GM/30 ML UDC (FOR ORAL USE ONLY) PO SCH (07:16)
[2017-01-30 09:30] VITALS: BP 78/54; PULSE 66; TEMP 97.6
[2017-01-30] MEDS ORDERED: CITALOPRAM HYDROBROMIDE 10 MG TABLET (FP) PO SCH (10:00)
[2017-01-30] MEDS: BACITRACIN 0.9 GM PACKET TP SCH (10:15)
[2017-01-30] MEDS: PRENATAL VITAMINS W/ FOLIC ACID TABLET (FP) PO SCH (10:15)
[2017-01-30] MEDS: CARVEDILOL 25 MG TABLET (FP) PO SCH (10:16)
[2017-01-30] MEDS: LOSARTAN POTASSIUM 50 MG TABLET (FP) PO SCH (10:16)
--- NOTE | 2017-01-30 11:55 | DS ---
[facility] Detox Discharge Summary Admission Date: 01/25/17 Discharge Date: 01/30/17 - History Present History: Opioid Dependence Additional Comments: PT. OFFERED OPPORTUNITY TO GO TO REHAB, BUT ELECTING TO GO HOME AT THIS TIME INSTEAD. PATIENT ADVISED TO FOLLOW-UP WITH CERTIFIED NUTRITIONIST DR. BLACK ([place], [place]) FOR GENERAL MEDICAL ASSESSMENT AND FOR FOLLOW-UP FOR ELEVATED AMMONIA LEVEL WHILE ADMITTED FOR DETOX. COPIES OF ALL LABS DRAWN FOR PATIENT GIVEN TO PATIENT AT TIME OF DISCHARGE FROM DETOX. PATIENT ALSO NOTED THAT HE WILL RETURN TO OUTPATIENT MEETINGS IN [facility] ([place], [place]) FOR AFTERCARE. PATIENT WAS DISCHARGED FROM DETOX UNIT IN STABLE MEDICAL CONDITION. Pertinent Past History: Hep C (Treated), Depression, Seizures, Nicotine Dependence. - Physical Exam Results Vital Signs: Vital Signs Temperature 97.6 F 01/30/17 09:29 Pulse Rate 66 01/30/17 09:29 Respiratory Rate 18 01/30/17 09:29 Blood Pressure 78/54 01/30/17 09:29 O2 Sat by Pulse Oximetry (%) Pertinent Admission Physical Exam Findings: WITHDRAWAL SYMPTOMS. Laboratory Tests 01/25/17 01/26/17 01/26/17 15:25 07:50 07:50 WBC Cancelled Corrected WBC (auto) Cancelled RBC Cancelled Hgb Cancelled Hct Cancelled MCV Cancelled MCH Cancelled MCHC Cancelled RDW Cancelled Plt Count Cancelled MPV Cancelled Neutrophils % Lymphocytes % Monocytes % Eosinophils % Basophils % Differential Comment Cancelled Platelet Estimate Cancelled Platelet Comment Cancelled RBC Morphology Cancelled Sodium 141 Potassium 4.3 Chloride 107 Carbon Dioxide 30 Anion Gap 4 L BUN 24 H Creatinine 1.3 Creat Clearance w eGFR 55.23 Random Glucose 87 Calcium 8.5 Total Bilirubin 0.5 AST 30 ALT 27 Alkaline Phosphatase 74 Ammonia Total Protein 5.3 L Albumin 2.6 L Urine Color [place] Urine Appearance Slcloudy Urine pH 5.0 Ur Specific [place] >= 1.030 H Urine Protein 3+ H Urine Glucose (UA) Negative Urine Ketones Trace H Urine Blood Negative Urine Nitrite Negative Urine Bilirubin Negative Urine Urobilinogen Negative Urine RBC 7 Urine WBC 7 Ur Epithelial Cells Rare Calcium Oxalate Crystal Rare Urine Bacteria Rare Urine Mucus Rare RPR Titer 01/26/17 01/27/17 01/28/17 07:50 19:29 07:00 WBC 6.1 Corrected WBC (auto) RBC 3.88 L Hgb 12.3 Hct 37.2 MCV 95.8 MCH 31.6 MCHC 33.0 RDW 13.9 Plt Count 156 MPV 9.5 Neutrophils % 57.4 Lymphocytes % 24.4 Monocytes % 11.0 H Eosinophils % 6.5 H Basophils % 0.7 Differential Comment Platelet Estimate Platelet Comment RBC Morphology Sodium Potassium Chloride Carbon Dioxide Anion Gap BUN Creatinine Creat Clearance w eGFR Random Glucose Calcium Total Bilirubin AST ALT Alkaline Phosphatase Ammonia Total Protein Albumin Urine Color Ltyellow Urine Appearance Clear Urine pH 5.0 Ur Specific [place] <= 1.005 Urine Protein Negative Urine Glucose (UA) Negative Urine Ketones Negative Urine Blood Negative Urine Nitrite Negative Urine Bilirubin Negative Urine Urobilinogen Negative Urine RBC Urine WBC Ur Epithelial Cells Calcium Oxalate Crystal Urine Bacteria Urine Mucus RPR Titer Nonreactive 01/28/17 01/28/17 01/30/17 07:00 12:20 07:00 WBC Corrected WBC (auto) RBC Hgb Hct MCV MCH MCHC RDW Plt Count MPV Neutrophils % Lymphocytes % Monocytes % Eosinophils % Basophils % Differential Comment Platelet Estimate Platelet Comment RBC Morphology Sodium 139 Potassium 3.9 Chloride 104 Carbon Dioxide 27 Anion Gap 8 BUN 24 H Creatinine 1.2 Creat Clearance w eGFR Random Glucose 102 Calcium 8.5 Total Bilirubin AST ALT Alkaline Phosphatase Ammonia 35.28 H 21 Total Protein Albumin Urine Color Urine Appearance Urine pH Ur Specific [place] Urine Protein Urine Glucose (UA) Urine Ketones Urine Blood Urine Nitrite Urine Bilirubin Urine Urobilinogen Urine RBC Urine WBC Ur Epithelial Cells Calcium Oxalate Crystal Urine Bacteria Urine Mucus RPR Titer LABS NOTED. - Treatment Hospital Course: Detox Protocol Followed, Detoxed Safely, Responded well, Discharged Condition Good Patient has Accepted a Rehab Referral to: NO. PT WILL RETURN TO AA MEETINGS AT [facility] ([place] - Medication Discharge Medications: Ambulatory Orders Carvedilol [Coreg -] 25 mg PO BID 01/25/17 Citalopram Hydrobromide [Citalopram HBr] 20 mg PO HS 01/25/17 Quetiapine Fumarate [Seroquel -] 50 mg PO HS 01/25/17 Mirtazapine [Remeron -] 15 mg PO HS #30 tablet 01/26/17 Citalopram Hydrobromide [Celexa -] 10 mg PO DAILY #30 tablet 01/29/17 Losartan Potassium 50 mg PO BID 01/29/17 Mirtazapine [Remeron -] 15 mg PO HS #30 tablet 01/29/17 Quetiapine Fumarate [Seroquel -] 50 mg PO HS #30 tablet 01/29/17 - Diagnosis (1) Insomnia secondary to depression with anxiety Status: Acute (2) Nicotine dependence Status: Chronic Qualifiers: Nicotine product type: cigarettes Substance use status: uncomplicated Qualified Code(s): F17.210 - Nicotine dependence, cigarettes, uncomplicated (3) Opioid dependence with withdrawal Status: Acute (4) Seizure Status: Acute (5) Substance induced mood disorder Status: Acute (6) MDD (major depressive disorder) Status: Chronic Qualifiers: Major depression recurrence: recurrent Active/Remission status: remission status unspecified Qualified Code(s): F33.9 - Major depressive disorder, recurrent, unspecified (7) Weight loss Status: Chronic (8) Hepatitis C Status: Resolved Qualifiers: Viral hepatitis chronicity: chronic Hepatic coma status: without hepatic coma Qualified Code(s): B18.2 - Chronic viral hepatitis C (9) Altered mental status Status: Acute Qualifiers: Altered mental status type: delirium Qualified Code(s): R41.0 - Disorientation, unspecified - AMA Did Patient Leave Against Medical Advice: No
== END 2017-01-30 10:44 | disposition home or self-care (01) | DRG 897 ==
LOC: YASAS 10:19 → Y3N 11:27
PROVIDERS: ADMIT Internal Medicine; ATTEND Internal Medicine
PROC: HZ2ZZZZ Detoxification Services for Substance Abuse Treatment (ICD-10-PCS; principal; 2017-01-25)
DX: F11.23 Opioid dependence with withdrawal (principal); F33.9 Major depressive disorder, recurrent, unspecified; Z68.1 Body mass index [BMI] 19.9 or less, adult; F17.210 Nicotine dependence, cigarettes, uncomplicated; F19.24 Other psychoactive substance dependence with psychoactive substance-induced mood disorder; F41.8 Other specified anxiety disorders; R56.9 Unspecified convulsions; R41.0 Disorientation, unspecified; G47.00 Insomnia, unspecified; R63.4 Abnormal weight loss; Z59.0 Homelessness
CPT/HCPCS: 36415; 80048; 80053; 81003; 81015; 82140; 85025; 86593; 93005; 93010

== ENCOUNTER 2017-02-23 08:23 | Inpatient (IN) | payer OTHER ==
[2017-02-23 08:52] VITALS: BMI 16.2
--- NOTE | 2017-02-23 13:11 | HP ---
[facility] Rehab Assess/Revision - Admission History Admitted to Rehab from: [facility] [place] - Vital signs Vital Signs: Vital Signs Period Temp Pulse Resp BP Sys/Ferrer Pulse Ox Last 24 Hr 96.8 F 84 18 144/90 - Findings Detox History & Physical reviewed: Yes Concur with findings: Yes
[2017-02-23] MEDS ORDERED: MAGNESIUM HYDROX 2400MG/30ML ORAL SUSPENSION 30 ML CUP PO PRN (13:14)
[2017-02-23] MEDS ORDERED: P-EPHED 60MG/TRIPROLIDI 2.5MG TABLET PO PRN (13:14)
[2017-02-23] MEDS ORDERED: MENTHOL/PHENOL 1 EACH UD MM PRN (13:14)
[2017-02-23] MEDS ORDERED: MAGNESIUM CITRATE 300 ML BOTTLE PO PRN (13:14)
[2017-02-23] MEDS ORDERED: LOPERAMIDE HCL 2 MG CAPSULE PO PRN (13:14)
[2017-02-23] MEDS ORDERED: MAG HYDROX/AL HYDROX/SIMETH 30 ML UNIT-DOSE CUP PO PRN (13:14)
[2017-02-23] MEDS ORDERED: IBUPROFEN 400 MG TABLET (FP) PO PRN (13:14)
[2017-02-23] MEDS ORDERED: NICOTINE POLACRILEX 4 MG GUM BUC PRN (13:14)
[2017-02-23] MEDS ORDERED: hydrOXYzine PAMOATE 50 MG CAPSULE (FP) PO PRN (13:14)
[2017-02-23] MEDS ORDERED: diphenhydrAMINE HCL 50 MG CAPSULE PO PRN (13:14)
[2017-02-23] MEDS ORDERED: guaiFENesin/D-METHORPHAN HB 10 ML UNIT-DOSE CUPS PO PRN (13:14)
--- NOTE | 2017-02-23 13:14 | HP ---
CYNTHIA ELLIS Rehab Assess/Revision - Vital signs Vital Signs: Vital Signs Period Temp Pulse Resp BP Sys/Ferrer Pulse Ox Last 24 Hr 96.8 F 84 18 144/90 Inpatient Rehab Admission - Initial Determination Are CD services needed?: Yes Free of communicable disease: Yes Not in need of hospitalization: Yes - Rehab Admission Criteria Comorbidities: Yes Patient is meeting Inpatient Rehab admission criteria:: Yes
[2017-02-23] MEDS ORDERED: FUROSEMIDE 20 MG TABLET (FP) PO SCH (14:17)
--- NOTE | 2017-02-23 15:48 | HP ---
Psychiatrist Admission - Data Date of interview: 02/23/17 Admission source: [facility] Identifying data: This is the first inpatient rehabilitation admission for ginosi 66 year old male, father of one,unemployed and homeless and supported on PA. Medical History: COPD, CHF, HTN and Hep C. Smokes cigarettes 10 a day. Psychiatric History: Patient reports was disgnosed as PTSD(related to his 30 years penitentiary time) and Mood disorder, reports he used to be on Remeron, Celexa and Seroquel "as needed", treated in rehab/detox unit. States he does not need medications only Seroquel 25 mg po hs PRN. Seen by while at restarted Remeron 15 mg po hs, patient reports after his discharge from was admitted in [facility] for treatment of COPD and Congestive heart failure , reports he did not continued medications. Physical/Sexual Abuse/Trauma History: Denies history of sexual, physical and verbal abuse. Vital Signs: Vital Signs - 24 hr 02/23/17 08:50 Temperature 96.8 F L Pulse Rate 84 Respiratory 18 Rate Blood Pressure 144/90 Allergies/Adverse Reactions: Allergies Allergy/AdvReac Type Severity Reaction Status Date / Time Penicillins Allergy Swelling Verified 02/23/17 11:06 Date of last physical exam: 02/23/17 Concur with the findings of this exam: Yes - Substance Abuse/Tx History Hx Alcohol Use: No Hx Substance Use: Yes (started at age of 10) Substance Use Type: Heroin (daily 10 bags IV) Hx Substance Use Treatment: Yes ([facility] Mental Status Exam - Mental Status Exam Alert and Oriented to: Time, Place, Person Cognitive Function: Good Patient Appearance: Well Groomed Mood: Anxious Affect: Mood Congruent Patient Behavior: Appropriate, Cooperative Speech Pattern: Clear, Appropriate Voice Loudness: Normal Thought Process: Intact, Goal Oriented Thought Disorder: Not Present Hallucinations: Denies Suicidal Ideation: Denies Homicidal Ideation: Denies Insight/Judgement: Fair Sleep: Well Appetite: Good Muscle strength/Tone: Normal Gait/Station: Normal Psychiatric Findings - Problem List ([place] 1, 2,3) (1) Nicotine dependence Current Visit: Yes Status: Chronic Qualifiers: Nicotine product type: cigarettes Substance use status: uncomplicated Qualified Code(s): F17.210 - Nicotine dependence, cigarettes, uncomplicated; F17.210 - Nicotine dependence, cigarettes, uncomplicated (2) Substance induced mood disorder Current Visit: No Status: Acute (3) Post traumatic stress disorder (PTSD) Current Visit: Yes Status: Acute (4) Opioid dependence Current Visit: Yes Status: Acute - Initial Treatment Plan Initial Treatment Plan: Will add Seroquel 25 mg po hs PRN, continue to monitor progress.
[2017-02-23] MEDS ORDERED: QUEtiapine FUMARATE 25 MG TABLET (FP) PO PRN (15:49)
[2017-02-23 17:25] LABS: URINE APPEARANCE SLCLOUDY; URINE BILIRUBIN NEGATIVE (NEGATIVE); URINE BLOOD NEGATIVE (NEGATIVE); URINE COLOR YELLOW; URINE GLUCOSE (UA) NEGATIVE (NEGATIVE); URINE KETONE NEGATIVE (NEGATIVE); URINE NITRITE NEGATIVE (NEGATIVE); URINE UROBILINOGEN NEGATIVE mg/dL (0.2-1.0)
[2017-02-23 17:26] LABS: URINE PROTEIN 2+ (NEGATIVE)
[2017-02-23 17:37] LABS: URINE RBC 1 /hpf (0-3); URINE WBC 1 /hpf (3-5)
[2017-02-23 21:07] LABS: URINE LEUK ESTERASE Negative (NEGATIVE)
[2017-02-23] MEDS: CARVEDILOL 25 MG TABLET (FP) PO SCH (21:08)
[2017-02-23] MEDS: QUEtiapine FUMARATE 50 MG TABLET PO SCH (21:08)
[2017-02-23] MEDS: MIRTAZAPINE 15 MG TABLET (FP) PO SCH (21:08)
[2017-02-23] MEDS: THIAMINE HCL 100 MG TABLET (FP) PO SCH (21:08)
[2017-02-24] MEDS ORDERED: NICOTINE 21 MG/24 HOURS TOPICAL PATCH TD SCH (10:00)
[2017-02-24] MEDS: ASPIRIN 81 MG CHEWABLE TABLETS PO SCH (10:05)
[2017-02-24] MEDS: PRENATAL VITAMINS W/ FOLIC ACID TABLET (FP) PO SCH (10:05)
[2017-02-24] MEDS: CITALOPRAM HYDROBROMIDE 10 MG TABLET (FP) PO SCH (10:05)
[2017-02-24] MEDS: CARVEDILOL 25 MG TABLET (FP) PO SCH ×2 (10:05→21:12)
[2017-02-24] MEDS: LOSARTAN POTASSIUM 25 MG TABLET PO SCH (10:06)
[2017-02-24 15:54] LABS: ALBUMIN 3.3 g/dl (3.4-5.0); ALK PHOS 94 U/L (45-117); ANION GAP 7 (8-16); BILIRUBIN,TOTAL 0.3 mg/dL (0.2-1.0); CALCIUM 8.6 mg/dL (8.5-10.1); CO2 30 mmol/L (21-32); CREATININE 1.4 mg/dL (0.7-1.3); GLUCOSE,RANDOM 106 mg/dL (74-106); SGOT/AST 22 U/L (15-37); SGPT/ALT 43 U/L (12-78); TOT PROT 6.6 g/dl (6.4-8.2)
[2017-02-24 16:00] LABS: MCH 31.9 pg (25.7-33.7); MCHC 33.6 g/dl (32.0-35.9); MEAN CELL VOLUME 94.9 fl (80-96); MEAN PLT VOLUME 9.1 fl (7.5-11.1); PLATELET COUNT 308 K/MM3 (134-434); WHITE BLOOD COUNT 7.9 K/mm3 (4.0-10.0)
--- NOTE | 2017-02-24 20:20 | EKG ---
Test Reason : Blood Pressure : / mmHG Vent. Rate : 092 BPM Atrial Rate : 092 BPM P-R Int : 204 ms QRS Dur : 098 ms QT Int : 376 ms P-R-T Axes : 080 072 250 degrees QTc Int : 464 ms SINUS RHYTHM WITH OCCASIONAL PREMATURE VENTRICULAR COMPLEXES ATRIAL ABNORMALITY PROLONGED QT ABNORMAL ECG WHEN COMPARED WITH ECG OF 26-JAN-2017 14:33, PREMATURE VENTRICULAR COMPLEXES ARE NOW PRESENT VENT. RATE HAS INCREASED BY 33 BPM Confirmed by SRIKANTH BEACH MD ([id number]) on 02/24/2017 8:20:32 PM Referred By: Confirmed By:SRIKANTH BEACH MD
[2017-02-24] MEDS: MIRTAZAPINE 15 MG TABLET (FP) PO SCH (21:12)
[2017-02-24] MEDS: QUEtiapine FUMARATE 50 MG TABLET PO SCH (21:12)
[2017-02-24] MEDS: THIAMINE HCL 100 MG TABLET (FP) PO SCH (21:12)
[2017-02-25] MEDS: ASPIRIN 81 MG CHEWABLE TABLETS PO SCH (09:57)
[2017-02-25] MEDS: LOSARTAN POTASSIUM 25 MG TABLET PO SCH (09:57)
[2017-02-25] MEDS: CITALOPRAM HYDROBROMIDE 10 MG TABLET (FP) PO SCH (09:57)
[2017-02-25] MEDS: CARVEDILOL 25 MG TABLET (FP) PO SCH ×2 (09:57→21:18)
[2017-02-25] MEDS: PRENATAL VITAMINS W/ FOLIC ACID TABLET (FP) PO SCH (09:58)
[2017-02-25] MEDS: NICOTINE 14 MG/24 HOURS TOPICAL PATCH TD SCH (09:59)
--- NOTE | 2017-02-25 11:34 | PN ---
[facility] Progress Note Note: Patient reports excessive nocturia from lasix, h/o CHF was recently hospitalized , MD torres he would stop the lasix. Will d/c as per patient wishes, f/u if needed to restart lasix.
[2017-02-25] MEDS: THIAMINE HCL 100 MG TABLET (FP) PO SCH (21:18)
[2017-02-25] MEDS: MIRTAZAPINE 15 MG TABLET (FP) PO SCH (21:18)
[2017-02-25] MEDS: QUEtiapine FUMARATE 50 MG TABLET PO SCH (21:18)
[2017-02-26] MEDS: ASPIRIN 81 MG CHEWABLE TABLETS PO SCH (09:56)
[2017-02-26] MEDS: CITALOPRAM HYDROBROMIDE 10 MG TABLET (FP) PO SCH (09:57)
[2017-02-26] MEDS: CARVEDILOL 25 MG TABLET (FP) PO SCH ×2 (09:57→21:12)
[2017-02-26] MEDS: PRENATAL VITAMINS W/ FOLIC ACID TABLET (FP) PO SCH (09:57)
[2017-02-26] MEDS: LOSARTAN POTASSIUM 25 MG TABLET PO SCH (09:57)
[2017-02-26] MEDS: NICOTINE 14 MG/24 HOURS TOPICAL PATCH TD SCH (09:58)
[2017-02-26] MEDS: QUEtiapine FUMARATE 50 MG TABLET PO SCH (21:12)
[2017-02-26] MEDS: THIAMINE HCL 100 MG TABLET (FP) PO SCH (21:12)
[2017-02-26] MEDS: MIRTAZAPINE 15 MG TABLET (FP) PO SCH (21:12)
[2017-02-27] MEDS: ASPIRIN 81 MG CHEWABLE TABLETS PO SCH (09:39)
[2017-02-27] MEDS: CITALOPRAM HYDROBROMIDE 10 MG TABLET (FP) PO SCH (09:39)
[2017-02-27] MEDS: CARVEDILOL 25 MG TABLET (FP) PO SCH ×2 (09:39→21:08)
[2017-02-27] MEDS: PRENATAL VITAMINS W/ FOLIC ACID TABLET (FP) PO SCH (09:39)
[2017-02-27] MEDS: LOSARTAN POTASSIUM 25 MG TABLET PO SCH (09:39)
[2017-02-27] MEDS: NICOTINE 14 MG/24 HOURS TOPICAL PATCH TD SCH (09:39)
[2017-02-27] MEDS: THIAMINE HCL 100 MG TABLET (FP) PO SCH (21:08)
[2017-02-27] MEDS: MIRTAZAPINE 15 MG TABLET (FP) PO SCH (21:08)
[2017-02-27] MEDS: QUEtiapine FUMARATE 50 MG TABLET PO SCH (21:08)
[2017-02-28] MEDS: NICOTINE 14 MG/24 HOURS TOPICAL PATCH TD SCH (09:57)
[2017-02-28] MEDS: PRENATAL VITAMINS W/ FOLIC ACID TABLET (FP) PO SCH (09:57)
[2017-02-28] MEDS: CARVEDILOL 25 MG TABLET (FP) PO SCH ×2 (09:57→21:34)
[2017-02-28] MEDS: LOSARTAN POTASSIUM 25 MG TABLET PO SCH (09:57)
[2017-02-28] MEDS: ASPIRIN 81 MG CHEWABLE TABLETS PO SCH (09:57)
[2017-02-28] MEDS: CITALOPRAM HYDROBROMIDE 10 MG TABLET (FP) PO SCH (09:57)
[2017-02-28] MEDS: THIAMINE HCL 100 MG TABLET (FP) PO SCH (21:33)
[2017-02-28] MEDS: QUEtiapine FUMARATE 50 MG TABLET PO SCH (21:34)
[2017-02-28] MEDS: MIRTAZAPINE 15 MG TABLET (FP) PO SCH (21:34)
[2017-03-01] MEDS: PRENATAL VITAMINS W/ FOLIC ACID TABLET (FP) PO SCH (09:51)
[2017-03-01] MEDS: LOSARTAN POTASSIUM 25 MG TABLET PO SCH (09:51)
[2017-03-01] MEDS: ASPIRIN 81 MG CHEWABLE TABLETS PO SCH (09:51)
[2017-03-01] MEDS: CITALOPRAM HYDROBROMIDE 10 MG TABLET (FP) PO SCH (09:51)
[2017-03-01] MEDS: CARVEDILOL 25 MG TABLET (FP) PO SCH ×2 (09:51→21:14)
[2017-03-01] MEDS: NICOTINE 14 MG/24 HOURS TOPICAL PATCH TD SCH (09:53)
[2017-03-01] MEDS: MIRTAZAPINE 15 MG TABLET (FP) PO SCH (21:14)
[2017-03-01] MEDS: QUEtiapine FUMARATE 50 MG TABLET PO SCH (21:14)
[2017-03-01] MEDS: THIAMINE HCL 100 MG TABLET (FP) PO SCH (21:14)
[2017-03-02] MEDS: ASPIRIN 81 MG CHEWABLE TABLETS PO SCH (10:00)
[2017-03-02] MEDS: PRENATAL VITAMINS W/ FOLIC ACID TABLET (FP) PO SCH (10:00)
[2017-03-02] MEDS: CARVEDILOL 25 MG TABLET (FP) PO SCH ×2 (10:00→21:15)
[2017-03-02] MEDS: CITALOPRAM HYDROBROMIDE 10 MG TABLET (FP) PO SCH (10:01)
[2017-03-02] MEDS: LOSARTAN POTASSIUM 25 MG TABLET PO SCH (10:01)
[2017-03-02] MEDS: NICOTINE 14 MG/24 HOURS TOPICAL PATCH TD SCH (10:01)
[2017-03-02] MEDS: THIAMINE HCL 100 MG TABLET (FP) PO SCH (21:15)
[2017-03-02] MEDS: QUEtiapine FUMARATE 50 MG TABLET PO SCH (21:15)
[2017-03-02] MEDS: MIRTAZAPINE 15 MG TABLET (FP) PO SCH (21:15)
[2017-03-03] MEDS: LOSARTAN POTASSIUM 25 MG TABLET PO SCH (09:46)
[2017-03-03] MEDS: ASPIRIN 81 MG CHEWABLE TABLETS PO SCH (09:46)
[2017-03-03] MEDS: CITALOPRAM HYDROBROMIDE 10 MG TABLET (FP) PO SCH (09:46)
[2017-03-03] MEDS: PRENATAL VITAMINS W/ FOLIC ACID TABLET (FP) PO SCH (09:46)
[2017-03-03] MEDS: CARVEDILOL 25 MG TABLET (FP) PO SCH ×2 (09:47→21:16)
[2017-03-03] MEDS: NICOTINE 14 MG/24 HOURS TOPICAL PATCH TD SCH (09:47)
[2017-03-03] MEDS: QUEtiapine FUMARATE 50 MG TABLET PO SCH (21:16)
[2017-03-03] MEDS: THIAMINE HCL 100 MG TABLET (FP) PO SCH (21:16)
[2017-03-03] MEDS: MIRTAZAPINE 15 MG TABLET (FP) PO SCH (21:16)
[2017-03-04] MEDS: CITALOPRAM HYDROBROMIDE 10 MG TABLET (FP) PO SCH (10:07)
[2017-03-04] MEDS: LOSARTAN POTASSIUM 25 MG TABLET PO SCH (10:07)
[2017-03-04] MEDS: PRENATAL VITAMINS W/ FOLIC ACID TABLET (FP) PO SCH (10:07)
[2017-03-04] MEDS: ASPIRIN 81 MG CHEWABLE TABLETS PO SCH (10:07)
[2017-03-04] MEDS: NICOTINE 14 MG/24 HOURS TOPICAL PATCH TD SCH (10:07)
[2017-03-04] MEDS: CARVEDILOL 25 MG TABLET (FP) PO SCH ×2 (10:07→21:25)
[2017-03-04] MEDS: QUEtiapine FUMARATE 50 MG TABLET PO SCH (21:25)
[2017-03-04] MEDS: THIAMINE HCL 100 MG TABLET (FP) PO SCH (21:25)
[2017-03-04] MEDS: MIRTAZAPINE 15 MG TABLET (FP) PO SCH (21:25)
[2017-03-05] MEDS: PRENATAL VITAMINS W/ FOLIC ACID TABLET (FP) PO SCH (10:13)
[2017-03-05] MEDS: ASPIRIN 81 MG CHEWABLE TABLETS PO SCH (10:13)
[2017-03-05] MEDS: LOSARTAN POTASSIUM 25 MG TABLET PO SCH (10:13)
[2017-03-05] MEDS: CITALOPRAM HYDROBROMIDE 10 MG TABLET (FP) PO SCH (10:13)
[2017-03-05] MEDS: CARVEDILOL 25 MG TABLET (FP) PO SCH ×2 (10:13→21:26)
[2017-03-05] MEDS: NICOTINE 14 MG/24 HOURS TOPICAL PATCH TD SCH (10:14)
[2017-03-05] MEDS: MIRTAZAPINE 15 MG TABLET (FP) PO SCH (21:26)
[2017-03-05] MEDS: QUEtiapine FUMARATE 50 MG TABLET PO SCH (21:26)
[2017-03-05] MEDS: THIAMINE HCL 100 MG TABLET (FP) PO SCH (21:26)
[2017-03-05] MEDS: ACETAMINOPHEN 325 MG TABLET (FP) PO PRN (22:14)
[2017-03-06] MEDS: ASPIRIN 81 MG CHEWABLE TABLETS PO SCH (09:48)
[2017-03-06] MEDS: CARVEDILOL 25 MG TABLET (FP) PO SCH ×2 (09:48→21:22)
[2017-03-06] MEDS: LOSARTAN POTASSIUM 25 MG TABLET PO SCH (09:48)
[2017-03-06] MEDS: PRENATAL VITAMINS W/ FOLIC ACID TABLET (FP) PO SCH (09:48)
[2017-03-06] MEDS: CITALOPRAM HYDROBROMIDE 10 MG TABLET (FP) PO SCH (09:48)
[2017-03-06] MEDS: NICOTINE 14 MG/24 HOURS TOPICAL PATCH TD SCH (10:30)
[2017-03-06] MEDS: QUEtiapine FUMARATE 50 MG TABLET PO SCH (21:22)
[2017-03-06] MEDS: THIAMINE HCL 100 MG TABLET (FP) PO SCH (21:22)
[2017-03-06] MEDS: MIRTAZAPINE 15 MG TABLET (FP) PO SCH (21:22)
[2017-03-07] MEDS: CITALOPRAM HYDROBROMIDE 10 MG TABLET (FP) PO SCH (09:34)
[2017-03-07] MEDS: ASPIRIN 81 MG CHEWABLE TABLETS PO SCH (09:34)
[2017-03-07] MEDS: PRENATAL VITAMINS W/ FOLIC ACID TABLET (FP) PO SCH (09:34)
[2017-03-07] MEDS: NICOTINE 14 MG/24 HOURS TOPICAL PATCH TD SCH (09:34)
[2017-03-07] MEDS: LOSARTAN POTASSIUM 25 MG TABLET PO SCH (09:34)
[2017-03-07] MEDS: CARVEDILOL 25 MG TABLET (FP) PO SCH ×2 (09:34→21:15)
[2017-03-07] MEDS: MIRTAZAPINE 15 MG TABLET (FP) PO SCH (21:15)
[2017-03-07] MEDS: THIAMINE HCL 100 MG TABLET (FP) PO SCH (21:15)
[2017-03-07] MEDS: QUEtiapine FUMARATE 50 MG TABLET PO SCH (21:15)
[2017-03-08] MEDS: CITALOPRAM HYDROBROMIDE 10 MG TABLET (FP) PO SCH (09:51)
[2017-03-08] MEDS: NICOTINE 14 MG/24 HOURS TOPICAL PATCH TD SCH (09:51)
[2017-03-08] MEDS: CARVEDILOL 25 MG TABLET (FP) PO SCH ×2 (09:51→21:25)
[2017-03-08] MEDS: ASPIRIN 81 MG CHEWABLE TABLETS PO SCH (09:51)
[2017-03-08] MEDS: LOSARTAN POTASSIUM 25 MG TABLET PO SCH (09:51)
[2017-03-08] MEDS: PRENATAL VITAMINS W/ FOLIC ACID TABLET (FP) PO SCH (09:51)
[2017-03-08] MEDS: QUEtiapine FUMARATE 50 MG TABLET PO SCH (21:25)
[2017-03-08] MEDS: MIRTAZAPINE 15 MG TABLET (FP) PO SCH (21:25)
[2017-03-08] MEDS: THIAMINE HCL 100 MG TABLET (FP) PO SCH (21:26)
[2017-03-09] MEDS: CITALOPRAM HYDROBROMIDE 10 MG TABLET (FP) PO SCH (09:48)
[2017-03-09] MEDS: PRENATAL VITAMINS W/ FOLIC ACID TABLET (FP) PO SCH (09:48)
[2017-03-09] MEDS: ASPIRIN 81 MG CHEWABLE TABLETS PO SCH (09:49)
[2017-03-09] MEDS: LOSARTAN POTASSIUM 25 MG TABLET PO SCH (09:49)
[2017-03-09] MEDS: CARVEDILOL 25 MG TABLET (FP) PO SCH ×2 (09:49→21:27)
[2017-03-09] MEDS: NICOTINE 14 MG/24 HOURS TOPICAL PATCH TD SCH (09:49)
[2017-03-09] MEDS: THIAMINE HCL 100 MG TABLET (FP) PO SCH (21:26)
[2017-03-09] MEDS: QUEtiapine FUMARATE 50 MG TABLET PO SCH (21:26)
[2017-03-09] MEDS: MIRTAZAPINE 15 MG TABLET (FP) PO SCH (21:27)
[2017-03-10] MEDS: PRENATAL VITAMINS W/ FOLIC ACID TABLET (FP) PO SCH (09:52)
[2017-03-10] MEDS: ASPIRIN 81 MG CHEWABLE TABLETS PO SCH (09:52)
[2017-03-10] MEDS: CARVEDILOL 25 MG TABLET (FP) PO SCH ×2 (09:53→21:12)
[2017-03-10] MEDS: CITALOPRAM HYDROBROMIDE 10 MG TABLET (FP) PO SCH (09:53)
[2017-03-10] MEDS: LOSARTAN POTASSIUM 25 MG TABLET PO SCH (09:53)
[2017-03-10] MEDS: NICOTINE 14 MG/24 HOURS TOPICAL PATCH TD SCH (09:53)
[2017-03-10] MEDS ORDERED: COLLOIDAL OATMEAL 1 BAR EACH TP PRN (10:45)
[2017-03-10] MEDS: QUEtiapine FUMARATE 50 MG TABLET PO SCH (21:12)
[2017-03-10] MEDS: THIAMINE HCL 100 MG TABLET (FP) PO SCH (21:12)
[2017-03-10] MEDS: MIRTAZAPINE 15 MG TABLET (FP) PO SCH (21:12)
[2017-03-11] MEDS: CITALOPRAM HYDROBROMIDE 10 MG TABLET (FP) PO SCH (09:49)
[2017-03-11] MEDS: CARVEDILOL 25 MG TABLET (FP) PO SCH ×2 (09:49→21:18)
[2017-03-11] MEDS: NICOTINE 14 MG/24 HOURS TOPICAL PATCH TD SCH (09:49)
[2017-03-11] MEDS: LOSARTAN POTASSIUM 25 MG TABLET PO SCH (09:49)
[2017-03-11] MEDS: ASPIRIN 81 MG CHEWABLE TABLETS PO SCH (09:49)
[2017-03-11] MEDS: PRENATAL VITAMINS W/ FOLIC ACID TABLET (FP) PO SCH (09:49)
[2017-03-11] MEDS: MIRTAZAPINE 15 MG TABLET (FP) PO SCH (21:18)
[2017-03-11] MEDS: QUEtiapine FUMARATE 50 MG TABLET PO SCH (21:18)
[2017-03-11] MEDS: THIAMINE HCL 100 MG TABLET (FP) PO SCH (21:18)
[2017-03-12] MEDS: CARVEDILOL 25 MG TABLET (FP) PO SCH ×2 (10:01→21:18)
[2017-03-12] MEDS: ASPIRIN 81 MG CHEWABLE TABLETS PO SCH (10:01)
[2017-03-12] MEDS: CITALOPRAM HYDROBROMIDE 10 MG TABLET (FP) PO SCH (10:01)
[2017-03-12] MEDS: LOSARTAN POTASSIUM 25 MG TABLET PO SCH (10:02)
[2017-03-12] MEDS: NICOTINE 14 MG/24 HOURS TOPICAL PATCH TD SCH (10:02)
[2017-03-12] MEDS: PRENATAL VITAMINS W/ FOLIC ACID TABLET (FP) PO SCH (10:02)
[2017-03-12] MEDS: MIRTAZAPINE 15 MG TABLET (FP) PO SCH (21:18)
[2017-03-12] MEDS: QUEtiapine FUMARATE 50 MG TABLET PO SCH (21:18)
[2017-03-12] MEDS: THIAMINE HCL 100 MG TABLET (FP) PO SCH (21:18)
[2017-03-13] MEDS: ASPIRIN 81 MG CHEWABLE TABLETS PO SCH (09:58)
[2017-03-13] MEDS: PRENATAL VITAMINS W/ FOLIC ACID TABLET (FP) PO SCH (09:58)
[2017-03-13] MEDS: CITALOPRAM HYDROBROMIDE 10 MG TABLET (FP) PO SCH (09:58)
[2017-03-13] MEDS: NICOTINE 14 MG/24 HOURS TOPICAL PATCH TD SCH (09:59)
[2017-03-13] MEDS: LOSARTAN POTASSIUM 25 MG TABLET PO SCH (09:59)
[2017-03-13] MEDS: CARVEDILOL 25 MG TABLET (FP) PO SCH ×2 (09:59→21:21)
[2017-03-13] MEDS: MIRTAZAPINE 15 MG TABLET (FP) PO SCH (21:21)
[2017-03-13] MEDS: QUEtiapine FUMARATE 50 MG TABLET PO SCH (21:21)
[2017-03-13] MEDS: THIAMINE HCL 100 MG TABLET (FP) PO SCH (21:22)
[2017-03-14] MEDS: CARVEDILOL 25 MG TABLET (FP) PO SCH ×2 (09:43→21:12)
[2017-03-14] MEDS: CITALOPRAM HYDROBROMIDE 10 MG TABLET (FP) PO SCH (09:43)
[2017-03-14] MEDS: LOSARTAN POTASSIUM 25 MG TABLET PO SCH (09:43)
[2017-03-14] MEDS: PRENATAL VITAMINS W/ FOLIC ACID TABLET (FP) PO SCH (09:43)
[2017-03-14] MEDS: ASPIRIN 81 MG CHEWABLE TABLETS PO SCH (09:43)
[2017-03-14] MEDS: NICOTINE 14 MG/24 HOURS TOPICAL PATCH TD SCH (09:44)
[2017-03-14] MEDS: MIRTAZAPINE 15 MG TABLET (FP) PO SCH (21:12)
[2017-03-14] MEDS: THIAMINE HCL 100 MG TABLET (FP) PO SCH (21:13)
[2017-03-14] MEDS: QUEtiapine FUMARATE 50 MG TABLET PO SCH (21:13)
[2017-03-15] MEDS: ASPIRIN 81 MG CHEWABLE TABLETS PO SCH (09:48)
[2017-03-15] MEDS: CARVEDILOL 25 MG TABLET (FP) PO SCH ×2 (09:48→21:16)
[2017-03-15] MEDS: PRENATAL VITAMINS W/ FOLIC ACID TABLET (FP) PO SCH (09:48)
[2017-03-15] MEDS: CITALOPRAM HYDROBROMIDE 10 MG TABLET (FP) PO SCH (09:48)
[2017-03-15] MEDS: NICOTINE 14 MG/24 HOURS TOPICAL PATCH TD SCH (09:48)
[2017-03-15] MEDS: LOSARTAN POTASSIUM 25 MG TABLET PO SCH (09:48)
[2017-03-15] MEDS: QUEtiapine FUMARATE 50 MG TABLET PO SCH (21:16)
[2017-03-15] MEDS: THIAMINE HCL 100 MG TABLET (FP) PO SCH (21:16)
[2017-03-15] MEDS: MIRTAZAPINE 15 MG TABLET (FP) PO SCH (21:16)
[2017-03-16] MEDS: ASPIRIN 81 MG CHEWABLE TABLETS PO SCH (09:32)
[2017-03-16] MEDS: LOSARTAN POTASSIUM 25 MG TABLET PO SCH (09:32)
[2017-03-16] MEDS: PRENATAL VITAMINS W/ FOLIC ACID TABLET (FP) PO SCH (09:32)
[2017-03-16] MEDS: CARVEDILOL 25 MG TABLET (FP) PO SCH ×2 (09:33→21:20)
[2017-03-16] MEDS: NICOTINE 14 MG/24 HOURS TOPICAL PATCH TD SCH (09:33)
[2017-03-16] MEDS: CITALOPRAM HYDROBROMIDE 10 MG TABLET (FP) PO SCH (09:33)
[2017-03-16] MEDS: MIRTAZAPINE 15 MG TABLET (FP) PO SCH (21:20)
[2017-03-16] MEDS: QUEtiapine FUMARATE 50 MG TABLET PO SCH (21:20)
[2017-03-16] MEDS: THIAMINE HCL 100 MG TABLET (FP) PO SCH (21:20)
[2017-03-17] MEDS: CARVEDILOL 25 MG TABLET (FP) PO SCH ×2 (09:37→21:10)
[2017-03-17] MEDS: PRENATAL VITAMINS W/ FOLIC ACID TABLET (FP) PO SCH (09:37)
[2017-03-17] MEDS: LOSARTAN POTASSIUM 25 MG TABLET PO SCH (09:37)
[2017-03-17] MEDS: ASPIRIN 81 MG CHEWABLE TABLETS PO SCH (09:37)
[2017-03-17] MEDS: CITALOPRAM HYDROBROMIDE 10 MG TABLET (FP) PO SCH (09:37)
[2017-03-17] MEDS: NICOTINE 14 MG/24 HOURS TOPICAL PATCH TD SCH (09:38)
[2017-03-17] MEDS: QUEtiapine FUMARATE 50 MG TABLET PO SCH (21:10)
[2017-03-17] MEDS: MIRTAZAPINE 15 MG TABLET (FP) PO SCH (21:10)
[2017-03-17] MEDS: THIAMINE HCL 100 MG TABLET (FP) PO SCH (21:10)
[2017-03-18] MEDS: PRENATAL VITAMINS W/ FOLIC ACID TABLET (FP) PO SCH (09:47)
[2017-03-18] MEDS: LOSARTAN POTASSIUM 25 MG TABLET PO SCH (09:47)
[2017-03-18] MEDS: ASPIRIN 81 MG CHEWABLE TABLETS PO SCH (09:47)
[2017-03-18] MEDS: CITALOPRAM HYDROBROMIDE 10 MG TABLET (FP) PO SCH (09:47)
[2017-03-18] MEDS: CARVEDILOL 25 MG TABLET (FP) PO SCH ×2 (09:47→21:08)
[2017-03-18] MEDS: NICOTINE 14 MG/24 HOURS TOPICAL PATCH TD SCH (09:48)
[2017-03-18] MEDS: THIAMINE HCL 100 MG TABLET (FP) PO SCH (21:08)
[2017-03-18] MEDS: QUEtiapine FUMARATE 50 MG TABLET PO SCH (21:08)
[2017-03-18] MEDS: MIRTAZAPINE 15 MG TABLET (FP) PO SCH (21:08)
[2017-03-19] MEDS: LOSARTAN POTASSIUM 25 MG TABLET PO SCH (09:52)
[2017-03-19] MEDS: PRENATAL VITAMINS W/ FOLIC ACID TABLET (FP) PO SCH (09:52)
[2017-03-19] MEDS: ASPIRIN 81 MG CHEWABLE TABLETS PO SCH (09:52)
[2017-03-19] MEDS: CARVEDILOL 25 MG TABLET (FP) PO SCH ×2 (09:52→21:11)
[2017-03-19] MEDS: CITALOPRAM HYDROBROMIDE 10 MG TABLET (FP) PO SCH (09:52)
[2017-03-19] MEDS: NICOTINE 14 MG/24 HOURS TOPICAL PATCH TD SCH (09:53)
[2017-03-19] MEDS: ACETAMINOPHEN 325 MG TABLET (FP) PO PRN (12:36)
[2017-03-19] MEDS: QUEtiapine FUMARATE 50 MG TABLET PO SCH (21:11)
[2017-03-19] MEDS: THIAMINE HCL 100 MG TABLET (FP) PO SCH (21:11)
[2017-03-19] MEDS: MIRTAZAPINE 15 MG TABLET (FP) PO SCH (21:11)
[2017-03-20] MEDS: PRENATAL VITAMINS W/ FOLIC ACID TABLET (FP) PO SCH (09:45)
[2017-03-20] MEDS: ASPIRIN 81 MG CHEWABLE TABLETS PO SCH (09:45)
[2017-03-20] MEDS: LOSARTAN POTASSIUM 25 MG TABLET PO SCH (09:46)
[2017-03-20] MEDS: CARVEDILOL 25 MG TABLET (FP) PO SCH ×2 (09:46→21:06)
[2017-03-20] MEDS: NICOTINE 14 MG/24 HOURS TOPICAL PATCH TD SCH (09:46)
[2017-03-20] MEDS: CITALOPRAM HYDROBROMIDE 10 MG TABLET (FP) PO SCH (09:46)
[2017-03-20] MEDS: MIRTAZAPINE 15 MG TABLET (FP) PO SCH (21:06)
[2017-03-20] MEDS: QUEtiapine FUMARATE 50 MG TABLET PO SCH (21:06)
[2017-03-20] MEDS: THIAMINE HCL 100 MG TABLET (FP) PO SCH (21:06)
[2017-03-21] MEDS: PRENATAL VITAMINS W/ FOLIC ACID TABLET (FP) PO SCH (09:37)
[2017-03-21] MEDS: LOSARTAN POTASSIUM 25 MG TABLET PO SCH (09:37)
[2017-03-21] MEDS: CITALOPRAM HYDROBROMIDE 10 MG TABLET (FP) PO SCH (09:37)
[2017-03-21] MEDS: CARVEDILOL 25 MG TABLET (FP) PO SCH ×2 (09:37→21:07)
[2017-03-21] MEDS: ASPIRIN 81 MG CHEWABLE TABLETS PO SCH (09:37)
[2017-03-21] MEDS: NICOTINE 14 MG/24 HOURS TOPICAL PATCH TD SCH (09:38)
[2017-03-21] MEDS: THIAMINE HCL 100 MG TABLET (FP) PO SCH (21:07)
[2017-03-21] MEDS: QUEtiapine FUMARATE 50 MG TABLET PO SCH (21:07)
[2017-03-21] MEDS: MIRTAZAPINE 15 MG TABLET (FP) PO SCH (21:07)
[2017-03-22] MEDS: CARVEDILOL 25 MG TABLET (FP) PO SCH ×2 (09:46→21:13)
[2017-03-22] MEDS: CITALOPRAM HYDROBROMIDE 10 MG TABLET (FP) PO SCH (09:46)
[2017-03-22] MEDS: PRENATAL VITAMINS W/ FOLIC ACID TABLET (FP) PO SCH (09:46)
[2017-03-22] MEDS: ASPIRIN 81 MG CHEWABLE TABLETS PO SCH (09:46)
[2017-03-22] MEDS: LOSARTAN POTASSIUM 25 MG TABLET PO SCH (09:46)
[2017-03-22] MEDS: NICOTINE 14 MG/24 HOURS TOPICAL PATCH TD SCH (09:47)
[2017-03-22] MEDS: QUEtiapine FUMARATE 50 MG TABLET PO SCH (21:13)
[2017-03-22] MEDS: THIAMINE HCL 100 MG TABLET (FP) PO SCH (21:13)
[2017-03-22] MEDS: MIRTAZAPINE 15 MG TABLET (FP) PO SCH (21:13)
[2017-03-23 06:48] VITALS: TEMP 97.3
--- NOTE | 2017-03-23 08:34 | PN ---
Psychiatric Progress Note Vital Signs: Vital Signs Period Temp Pulse Resp BP Sys/Ferrer Pulse Ox Last 24 Hr 97.3 F 76-79 16-18 135-145/83-91 Date of Session: 03/23/17 Chief Complaint:: discharge visit HPI: Patient has addressed opioid, nicotine dependence comorbid substance induced mood disorder , PTSD. ROS: COPD, CHF, HTN medically managed. Hep C. Current Medications: Active Medications Generic Name Dose Route Start Last Admin Trade Name Freq PRN Reason Stop Dose Admin Acetaminophen 650 mg 02/23/17 13:14 03/19/17 12:36 Tylenol - PO 650 mg Q4H PRN Administration PAIN Al Hydroxide/Mg Hydroxide 30 ml 02/23/17 13:14 Mylanta Oral Suspension - PO Q6H PRN DYSPEPSIA Aspirin 81 mg 02/24/17 10:00 03/22/17 09:46 Asa - PO 81 mg DAILY MARTIN Administration Carvedilol 25 mg 02/23/17 22:00 03/22/17 21:13 Coreg - PO 25 mg BID MARTIN Administration Citalopram Hydrobromide 10 mg 02/24/17 10:00 03/22/17 09:46 Celexa - PO 10 mg DAILY MARTIN Administration Colloidal Oatmeal 1 applic 03/10/17 10:45 03/10/17 15:43 Aveeno Soap - TP 1 applic DAILY PRN Administration HYGEINE Eucalyptus/Menthol/Phenol/Sorbitol 1 each 02/23/17 13:14 Cepastat Lozenge - MM Q4H PRN SORE THROAT Guaifenesin 10 ml 02/23/17 13:14 Robitussin Dm - PO Q6H PRN COUGH Hydroxyzine Pamoate 50 mg 02/23/17 13:14 Vistaril - PO Q4H PRN AGITATION Ibuprofen 400 mg 02/23/17 13:14 Motrin - PO Q6H PRN SEVERE PAIN Loperamide HCl 4 mg 02/23/17 13:14 Imodium - PO Q6H PRN DIARRHEA Losartan Potassium 25 mg 02/24/17 10:00 03/22/17 09:46 Cozaar - PO 25 mg DAILY MARTIN Administration Magnesium Citrate 300 ml 02/23/17 13:14 Citroma - PO Q48H PRN CONSTIPATION Magnesium Hydroxide 30 ml 02/23/17 13:14 Milk Of Magnesia - PO DAILY PRN CONSTIPATION Mirtazapine 15 mg 02/23/17 22:00 03/22/17 21:13 Remeron - PO 15 mg HS MARTIN Administration Nicotine 14 mg 02/24/17 12:11 03/22/17 09:47 Nicoderm Patch - TD Not Given DAILY MARTIN Nicotine Polacrilex 4 mg 02/23/17 13:14 Nicorette Gum - BUC Q2H PRN NICOTINE REPLACEMENT RX Multivit/Folic Acid/Iron 1 tab 02/24/17 10:00 03/22/17 09:46 Vitamins (Sjr) - PO 1 tab DAILY MARTIN Administration Pseudoephedrine/Triprolidine 1 combo 02/23/17 13:14 Actifed - PO TID PRN NASAL CONGESTION Quetiapine Fumarate 25 mg 02/23/17 15:49 03/05/17 21:26 Seroquel - PO 25 mg HS PRN Administration INSOMNIA Quetiapine Fumarate 50 mg 02/23/17 22:00 03/22/17 21:13 Seroquel - PO 50 mg HS MARTIN Administration Thiamine HCl 100 mg 02/23/17 22:00 03/22/17 21:13 Vitamin B1 - PO 100 mg HS MARTIN Administration Current Side Effect: No Lab tests ordered: No Lab tests reviewed: Yes Provider note:: Patient has completed today his treatment and met his goals, will continue to address his issues at [facility] inpatient intermediate manager treatment program. He gained insights into his addiction and motivated to continue maintain abstinence and be adherent to every aspects of his aftercare plans. Medications well tolerated, patient reports feeling much better, scripts provided, he was encouraged to take medications as directed and continue maintain abstinence, patient is stable for dicharge today. Total face to face time:: 25 Mental Status Exam - Mental Status Exam Alert and Oriented to: Time, Place, Person Cognitive Function: Good Patient Appearance: Well Groomed Mood: Hopeful Affect: Appropriate Patient Behavior: Appropriate, Cooperative Speech Pattern: Appropriate Voice Loudness: Normal Thought Process: Intact, Goal Oriented Thought Disorder: Not Present Hallucinations: None, Denies Suicidal Ideation: Denies Homicidal Ideation: Denies Insight/Judgement: Fair Sleep: Well Appetite: Good Muscle strength/Tone: Normal Gait/Station: Normal Psychiatric Treatment Plan - Problem List (1) Nicotine dependence Current Visit: Yes Qualifiers: Nicotine product type: cigarettes Substance use status: uncomplicated Qualified Code(s): F17.210 - Nicotine dependence, cigarettes, uncomplicated (2) Substance induced mood disorder Current Visit: No (3) Opioid dependence Current Visit: Yes (4) Post traumatic stress disorder (PTSD) Current Visit: Yes
[2017-03-23] MEDS: CITALOPRAM HYDROBROMIDE 10 MG TABLET (FP) PO SCH (09:48)
[2017-03-23] MEDS: NICOTINE 14 MG/24 HOURS TOPICAL PATCH TD SCH (09:48)
[2017-03-23] MEDS: ASPIRIN 81 MG CHEWABLE TABLETS PO SCH (09:48)
[2017-03-23] MEDS: LOSARTAN POTASSIUM 25 MG TABLET PO SCH (09:48)
[2017-03-23] MEDS: CARVEDILOL 25 MG TABLET (FP) PO SCH (09:48)
[2017-03-23] MEDS: PRENATAL VITAMINS W/ FOLIC ACID TABLET (FP) PO SCH (09:48)
[2017-03-23 11:26] VITALS: BP 142/82; PULSE 82
== END 2017-03-23 10:30 | disposition home or self-care (01) | DRG 895 ==
LOC: YASAS 08:23 → Y5N 13:10
PROVIDERS: ADMIT Psychiatry & Neurology Psychiatry; ATTEND Psychiatry & Neurology Psychiatry
PROC: HZ42ZZZ Group Counseling for Substance Abuse Treatment, Cognitive-Behavioral (ICD-10-PCS; principal; 2017-02-23)
DX: F11.20 Opioid dependence, uncomplicated (principal); F17.210 Nicotine dependence, cigarettes, uncomplicated; F43.10 Post-traumatic stress disorder, unspecified; F19.24 Other psychoactive substance dependence with psychoactive substance-induced mood disorder; I10 Essential (primary) hypertension; I50.9 Heart failure, unspecified; J44.9 Chronic obstructive pulmonary disease, unspecified; B18.2 Chronic viral hepatitis C; Z59.0 Homelessness
CPT/HCPCS: 36415; 80053; 81003; 81015; 85027; 86593; 93005; 93010